=== PATIENT | female | born 1980 | race Caucasian/White ===

== ENCOUNTER 2017-07-03 14:37 | Emergency (ER) | payer MEDICAID ==
[~2017-07-03] VITALS: Ht 152.4 cm; Wt 70.8 kg
[2017-07-03 14:57] VITALS: BP 123/87; Ht 152.4 cm; Wt 70.8 kg
[2017-07-03 16:34] LABS: BASOPHIL % 0.5 % (0-2); PLATELET COUNT 267 x10^3mcL (130-400)
[2017-07-03 16:42] LABS: RED CELL DISTRIBUTION WIDTH 15.9 % (11.5-14.5)
[2017-07-03 17:44] LABS: UA SPECIFIC GRAVITY 1.015 (1.005-1.035); microscopic required? YES; urine erythrocyte 3+ (NEGATIVE)
== END 2017-07-03 17:32 | disposition home or self-care (01) ==
LOC: ED 14:37
PROVIDERS: Emergency Medicine
DX: N93.9 Abnormal uterine and vaginal bleeding, unspecified (principal)
CPT/HCPCS: 36415

== ENCOUNTER 2017-07-05 15:59 | Emergency (ER) | payer MEDICAID ==
[~2017-07-05] VITALS: Ht 152.4 cm; Wt 71.2 kg
[2017-07-05 16:02] VITALS: BP 121/65; Ht 152.4 cm; Wt 71.2 kg
== END 2017-07-05 18:18 | disposition home or self-care (01) ==
LOC: ED 15:59
DX: O20.0 Threatened abortion (principal); Z3A.00 Weeks of gestation of pregnancy not specified